=== PATIENT | male | born 1995 | race Caucasian/White ===

== ENCOUNTER 2017-11-01 09:45 | Emergency (ER) | payer OTHER ==
[~2017-11-01] VITALS: Ht 180.3 cm; Wt 61.2 kg
--- NOTE | 2017-11-01 09:47 | NUR ---
ARRIVED TO ED AMBULATORY C/O SHORTNESS OF BREATH, CHEST TIGHTNESS LIGHT HEADNESS ESPECIALLY AFTER MEALS. VSS CHARTED. PATIENT COLD. COOL TO TOUCH. MD NOTIFIED OF ARRIVAL.
[2017-11-01 10:04] VITALS: BP 157/86
--- NOTE | 2017-11-01 10:19 | NUR ---
DR. RODGERS IN ROOM ASSESSING PATIENT.
--- NOTE | 2017-11-01 10:20 | NUR ---
PATIENT AMBULATED TO BATHROOM WITH STANDBY ASSIST. URINE SAMPLE OBTAINED.
[2017-11-01] MEDS ORDERED: ATARAX PO STA (10:22)
--- NOTE | 2017-11-01 10:24 | NUR ---
RADIOLOGY IN ROOM FOR CHEST XRAY RT IN ROOM FOR EKG
--- NOTE | 2017-11-01 10:26 | ER.PDOC ---
General Chief Complaint: Dyspnea/Respdistress Stated Complaint: SOB TRAVEL OUT OF US: No Time seen by MD: 10:24 Source: patient Exam Limitations: no limitations History of Present Illness Initial Comments Chest tightness for 1 year worse in past 1 week. This is accompanied by tingling feeling. Severity: moderate Associated Symptoms: denies symptoms Allergies: Coded Allergies: hydrocodone (Verified Allergy, Unknown, Nausea, 11/01/17) VOMIITING, PALE Past Medical History Medical History: no pertinent history, asthma Social History Smoking: non-smoker Alcohol Use: none Drug Use: marijuana Review of Systems Constitutional: no symptoms reported EENTM: no symptoms reported Respiratory: see HPI Cardiovascular: no symptoms reported Gastrointestinal: no symptoms reported Genitourinary: no symptoms reported All Other Systems: Reviewed and Negative Physical Exam General Appearance: No Apparent Distress, Anxious EENT: eyes nml inspection Neck: Non-Tender, Full Range of Motion, Supple Respiratory: chest non-tender, lungs clear, normal breath sounds, no respiratory distress CVS: reg rate & rhythm, no murmur, no gallop, pulses nml, nml capillary refill Gastrointestinal: Normal Bowel Sounds, No Organomegaly, No Pulsatile Mass, Non Tender Back: Normal Inspection Extremities: Normal Range of Motion 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 as Tested Skin: Normal Color Results/Orders Results/Orders Laboratory Tests Test 11/01/17 10:25 11/01/17 10:28 Urine Opiates, Qualitative NEGATIVE ng/mL (CUT-OFF:300) Urine Methadone, Qualitative NEGATIVE ng/mL (CUT-OFF:300) Urine Amphetamine Qualitative NEGATIVE ng/mL (CUTOFF:1000) Urine Barbiturates, Qualitative NEGATIVE ng/mL (CUT-OFF:200) Urine Phencyclidine Screen NEGATIVE ng/mL (CUT-OFF:25) Urine MDMA (Ecstasy), Qualitative NEGATIVE ng/mL (CUT-OFF:300) Urine Benzodiazepines Screen NEGATIVE ng/mL (CUT-OFF:200) Urine Cocaine Qualitative NEGATIVE ng/mL (CUT-OFF:300) Ur Tetrahydrocannabinol (THC) Scrn POSITIVE ng/mL (CUT-OFF:50) White Blood Count 8.7 10^3/uL (4.5-11.0) Red Blood Count 5.48 10^6/uL (4.50-5.90) Hemoglobin 16.2 g/dL (13.9-16.3) Hematocrit 48.8 % (37.0-53.0) Mean Corpuscular Volume 89.1 fL (78-100) Mean Corpuscular Hemoglobin 29.6 pg (26-34) Mean Corpuscular Hemoglobin Concent 33.2 g/dL (33-37) Red Cell Distribution Width 12.5 % (11.5-14.5) Platelet Count 218 10^3/uL (150-400) Mean Platelet Volume 11.0 fL (7.8-11.0) Neutrophils (%) (Auto) 65.9 % (41.0-85.0) Lymphocytes (%) (Auto) 19.0 % (24.0-44.0) Monocytes (%) (Auto) 12.7 % (5.0-12.0) Neutrophils # (Auto) 5.7 10^3/uL (1.8-7.7) Lymphocytes # (Auto) 1.7 10^3/uL (1.0-4.8) Monocytes # (Auto) 1.1 10^3/uL (0.3-0.8) Absolute Immature Granulocyte (auto 0.01 10^3 u/L (0-2) Eosinophils % 1.7 % (0.0-5.0) Basophils % 0.6 % (0.0-0.2) Basophils # 0.1 10^3/uL (0.0-0.1) Eosinophil Count 0.2 10^3/uL (0.0-0.2) Sodium Level 138 mmol/L (132-145) Potassium Level 3.9 mmol/L (3.6-5.2) Chloride Level 103.0 mmol/L (96-109) Carbon Dioxide Level 26.7 mmol/L (20.0-32) Anion Gap 12.2 Blood Urea Nitrogen 11 mg/dL (7-18) Creatinine 0.87 mg/dL (0.59-1.40) Estimated GFR () 134.0 (>/=60) BUN/Creatinine Ratio 12.0 Glucose Level 121 mg/dL (70-110) Calcium Level 9.8 mg/dL (8.4-10.5) Total Bilirubin 0.2 mg/dL (0.2-1.0) Aspartate Amino Transf (AST/SGOT) 12 U/L (0-35) Alanine Aminotransferase (ALT/SGPT) 21 U/L (12-78) Alkaline Phosphatase 96 U/L (50-136) Troponin I < 0.02 ng/mL (0.00-0.05) Total Protein 8.0 g/dL (6.4-8.2) Albumin 4.3 g/dL (3.4-5.0) Globulin 3.7 Percent Immature Gran (Cell Imm) 0.10 % (0.00-0.50) Administered Medications Medications (Trade) Dose Ordered Sig/Yuri Route PRN Reason Start Time Stop Time Status Last Admin Dose Admin Hydroxyzine HCl (Atarax) 50 mg STAT STAT PO 11/01/17 10:22 11/01/17 10:24 DC 11/01/17 10:36 EKG/XRAY/CT/US EKG: NSR XRAY: chest (No active disease) Departure Time of Disposition: 11:24 Disposition: 01 HOME, SELF-CARE Impression: Primary Impression: Marijuana abuse Additional Impression: Anxiety state Condition: Stable Referrals: PCP,UNKNOWN (PCP) PRIMARY CARE PROVIDER Additional Instructions: F/U with substance abuse program F/U with PCP this week. Duration or Time Spent with Pa: 60 mins MARGARETTE RODGERS MD November 01, 2017 10:26
[2017-11-01] MEDS ORDERED: ATARAX ONE (10:28)
[2017-11-01 10:34] LABS: BASOPHIL # 0.1 10^3/uL (0.0-0.1); BASOPHIL % 0.6 % (0.0-0.2); EOSINOPHIL # 0.2 10^3/uL (0.0-0.2); EOSINOPHIL % 1.7 % (0.0-5.0); HEMOGLOBIN 16.2 g/dL (13.9-16.3); LYMPHOCYTES # 1.7 10^3/uL (1.0-4.8); MEAN CELL HGB 29.6 pg (26-34); MEAN CELL HGB CONCENTRATION 33.2 g/dL (33-37); MEAN CORP VOLUME 89.1 fL (78-100); MONOCYTES # 1.1 10^3/uL (0.3-0.8); MONOCYTES % 12.7 % (5.0-12.0); NEUTROPHIL # 5.7 10^3/uL (1.8-7.7); NEUTROPHILS % 65.9 % (41.0-85.0); RED CELL DISTRIBUTION WIDTH 12.5 % (11.5-14.5); WHITE BLOOD CELL 8.7 10^3/uL (4.5-11.0)
--- NOTE | 2017-11-01 10:45 | DIREP ---
PROCEDURE:CHEST 1 VIEW COMPARISON:None. INDICATIONS:Chest tightness FINDINGS: LUNGS/PLEURA:No significant pulmonary parenchymal abnormalities. No effusions. VASCULATURE:Normal. Unremarkable pulmonary vasculature. CARDIAC:Normal. No cardiac silhouette abnormality or cardiomegaly. MEDIASTINUM:Normal. No visible mass or adenopathy. BONES:Normal. No fracture or visible bony lesion. OTHER:Negative. CONCLUSION:No acute disease Dictated by: Wan Kline DO on 11/01/2017 at 10:43 AM
--- NOTE | 2017-11-01 10:56 | PCM.EKG ---
[facility] Test Date: 2017-11-01 Test Time: 10:39:40 Pat Name: JEROD JURADO Department: Room: Gender: M Release Specialist: RT : 1995 Requested By: MARGARETTE RODGERS Order Number: [id number] Reading MD: Margarette RODGERS Measurements Intervals [place] Rate: 90 P: 65 VT: 152 QRS: 71 QRSD: 96 T: 51 QT: 362 QTc: 442 Interpretive Statements Normal sinus rhythm with sinus arrhythmia Normal ECG No previous ECG available for comparison Electronically Signed On 11-01-2017 23:19:10 CDT by Margarette RODGERS Please click the below link to view image of tracing.
[2017-11-01 10:57] LABS: ALANINE AMINOTRANSFERASE(ML) 21 U/L (12-78); ALKALINE PHOSPHATASE 96 U/L (50-136); ASPARTATE AMINO TRANSFERASE 12 U/L (0-35); CALCIUM 9.8 mg/dL (8.4-10.5); CARBON DIOXIDE 26.7 mmol/L (20.0-32); GLUCOSE 121 mg/dL (70-110)
--- NOTE | 2017-11-01 11:10 | NUR ---
PATIENT AMBULATED TO BATHROOM TO VOID
[2017-11-01 11:30] VITALS: BP 137/62
--- NOTE | 2017-11-01 11:33 | NUR ---
REVIEWED DISCHARGE INSTRUCTIONS WITH PATIENT.
== END 2017-11-01 11:33 | disposition home or self-care (01) ==
LOC: ER 09:45
DX: F41.9 Anxiety disorder, unspecified (principal); F12.10 Cannabis abuse, uncomplicated; Z88.8 Allergy status to other drugs, medicaments and biological substances
CPT/HCPCS: 36415; 71045; 80053; 80307; 84484; 85025; 93005; 99285